=== PATIENT | male | born 1945 | race Caucasian/White ===

== ENCOUNTER 2017-02-02 23:52 | Inpatient (IN) | payer MEDICARE, OTHER ==
[~2017-02-02 23:52] MED LIST: ACIPHEX20 MG PO; ADVAIR IH; FISH OIL CONC1000 MG PO; MVI; OCUVITE PO; XOPENEX IH
[2017-02-03] VITALS (414 sets, daily range): BP systolic 127–185; BP diastolic 59–100; PULSE 78–101; TEMP 97.3–98.4; O2SAT 86–100
[2017-02-03] MEDS ORDERED: ZYLOPRIM 100MG100 MG PO (00:06)
[2017-02-03 00:13] LABS: BASO # 0.1 (0.0-0.2); BASO % 0.6 % (0.0-2.0); EOS # 0.1 (0.0-0.7); GRAN % 73.9 % (42.2-75.2); HEMATOCRIT 49.8 % (42.0-52.0); LYMPH # 1.9 (1.2-3.4); LYMPH % 17.5 % (20.0-51.0); MEAN CELL VOLUME 105 fl (80.0-100.0); MEAN CORPUSCULAR HEMOGLOBIN 36 pg (27.0-31.0); MEAN CORPUSCULAR HGB CONC 34 g/dl (33.0-37.0); MEAN PLATELET VOLUME 9.8 fl (7.4-10.4); MONO # 0.7 (0.1-0.6); MONO % 6.5 % (1.7-9.3); PLATELET COUNT 190 K/mm3 (130-400); RED BLOOD COUNT 4.75 M/mm3 (4.20-5.60); WHITE BLOOD COUNT 10.8 K/mm3 (4.8-10.8)
[2017-02-03 00:25] LABS: ADJUSTED CALCIUM 9.1 mg/dL (8.4-10.2); ALBUMIN 4.7 gm/dL (3.5-5.0); BILIRUBIN,TOTAL 0.7 mg/dL (0.0-1.0); CALCIUM 9.7 mg/dL (8.4-10.2); CREATININE, serum 0.97 mg/dL (0.66-1.25); POTASSIUM 4.3 mmol/L (3.4-5.0); TOTAL PROTEIN 8.4 gm/dL (6.4-8.2)
[2017-02-03 00:36] LABS: TROPONIN-I 0.031 ng/mL (0.000-0.034)
[2017-02-03 00:41] LABS: ARTERIAL BLD GAS O2 SATURATION 96.2 % (92-100); ARTERIAL BLD GAS TCO2 CT 32.5; ARTERIAL BLOOD GAS BASE EXCESS 2.5 (-2-2); ARTERIAL BLOOD GAS HCO3 30.7 meq/L (22-26); ARTERIAL BLOOD GAS PHT 7.32 C (7.35-7.45); ARTERIAL BLOOD GAS PO2 87.2 mmHg (80-100); ARTERIAL BLOOD GAS PO2T 87.2 (80-100); ARTERIAL BLOOD GAS pH 7.32 (7.35-7.45); OXYHEMOGLOBIN 95.2 %
[2017-02-03 00:42] LABS: ALLEN TEST YES; ALLENS TEST RESULT PASS; ATS? YES
[2017-02-03] MEDS ORDERED: PROAIR HFA0.09 MG/AC IH (00:46)
[2017-02-03] MEDS ORDERED: ATROVENT I0.2 MG/1 M IH (00:48)
[2017-02-03] MEDS ORDERED: ALBUTEROL0.83 MG/ML IH (00:49)
[2017-02-03] MEDS ORDERED: CYMBALTA 60MG60 MG PO (00:50)
[2017-02-03] MEDS ORDERED: ZYLOPRIM 300MG300 MG PO (00:50)
[2017-02-03] MEDS ORDERED: FELDENE20 MG PO (00:51)
[2017-02-03] MEDS ORDERED: LASIX 40MG TABL40 MG PO (00:52)
[2017-02-03] MEDS ORDERED: MULTI VITAMINS1 TAB PO (00:54)
[2017-02-03 01:27] LABS: PROTHROMBIN TIME 11.6 SECONDS (9.7-12.8)
[2017-02-03 01:30] LABS: D-DIMER < 200.00 ng/mLDDu (200-230); PARTIAL THROMBOPLASTIN TIME 34.2 SECONDS (26.0-37.0)
[2017-02-03 05:40] LABS: INFLUENZA A NEGATIVE; INFLUENZA B NEGATIVE
[2017-02-03 05:49] LABS: ARTERIAL BLD GAS TCO2 CT 33.6; ARTERIAL BLOOD GAS HCO3 31.8 meq/L (22-26); ARTERIAL BLOOD GAS PHT 7.34 C (7.35-7.45); ARTERIAL BLOOD GAS pH 7.34 (7.35-7.45)
[2017-02-03 05:54] LABS: ALLEN TEST YES; ALLENS TEST RESULT PASS; ATS? YES
[2017-02-03 07:28] LABS: HEMOGLOBIN 16.4 g/dl (13.5-18.0); MEAN CELL VOLUME 109 fl (80.0-100.0); MEAN CORPUSCULAR HEMOGLOBIN 42 pg (27.0-31.0); MEAN CORPUSCULAR HGB CONC 39 g/dl (33.0-37.0); MEAN PLATELET VOLUME 10.1 fl (7.4-10.4); PLATELET COUNT 178 K/mm3 (130-400); RED BLOOD COUNT 3.87 M/mm3 (4.20-5.60); WHITE BLOOD COUNT 7.9 K/mm3 (4.8-10.8)
[2017-02-03 07:32] LABS: ADD PATHOLOGY DIFF REVIEW NO
[2017-02-03 07:39] LABS: ADJUSTED CALCIUM 9.2 mg/dL (8.4-10.2); ALBUMIN 4.5 gm/dL (3.5-5.0); BILIRUBIN,TOTAL 0.6 mg/dL (0.0-1.0); CALCIUM 9.6 mg/dL (8.4-10.2); CREATININE, serum 0.85 mg/dL (0.66-1.25); POTASSIUM 4.6 mmol/L (3.4-5.0); TOTAL PROTEIN 7.9 gm/dL (6.4-8.2)
[2017-02-03 08:10] LABS: BAND 6 % (0-10); LYMPHOCYTE 9 % (20.0-51.0); NEUTROPHILS 84 % (42.0-75.2); TOTAL CELLS COUNTED 100
[2017-02-03 08:12] LABS: PLATELET ESTIMATE NORMAL (NORMAL)
[2017-02-04 03:39] VITALS: BP 138/73; PULSE 83; TEMP 98.2
[2017-02-04 05:27] LABS: ARTERIAL BLD GAS O2 SATURATION 94.1 % (92-100); ARTERIAL BLD GAS TCO2 CT 28.2; ARTERIAL BLOOD GAS HCO3 26.8 meq/L (22-26); ARTERIAL BLOOD GAS PO2 70.4 mmHg (80-100); ARTERIAL BLOOD GAS pH 7.38 (7.35-7.45); OXYHEMOGLOBIN 93.3 %
[2017-02-04 05:28] LABS: ALLEN TEST YES; ALLENS TEST RESULT PASS; ATS? YES
[2017-02-04 08:23] VITALS: BP 143/60; PULSE 105; TEMP 98.6
[2017-02-04] MEDS ORDERED: MUCINEX1200 MG PO (08:34)
[2017-02-04] MEDS ORDERED: FLONASE NASAL S16 GM NS (08:35)
[2017-02-04] MEDS ORDERED: LEVAQUIN 750MG750 M1 PO (08:38)
[2017-02-04] MEDS ORDERED: PREDNISONE20 MG PO (08:38)
== END 2017-02-04 11:04 | disposition home or self-care (01) | DRG 189 ==
LOC: COL.ER 23:52 → ICU 02-03 01:54 → MEDICAL 02-03 01:54
PROVIDERS: Emergency Medicine; Family Medicine; Nurse Practitioner
DX: J96.01 Acute respiratory failure with hypoxia (principal); J44.1 Chronic obstructive pulmonary disease with (acute) exacerbation; I10 Essential (primary) hypertension; G62.9 Polyneuropathy, unspecified; M10.9 Gout, unspecified; Z87.891 Personal history of nicotine dependence
CPT/HCPCS: 99223-AI; 99239; J1650; J1956; J2920; J2930

== ENCOUNTER 2017-11-05 12:58 | Day surgery (SDC) | payer MEDICARE, OTHER ==
[~2017-11-05] VITALS: Ht 177.8 cm; Wt 122.7 kg
[~2017-11-05 12:58] MED LIST changes: -ADVAIR IH; +ALBUTEROL0.83 MG/ML IH; +ATROVENT I0.2 MG/1 M IH; +CYMBALTA 60MG60 MG PO; +FELDENE20 MG PO; +FLONASE NASAL S16 GM NS; +LASIX 40MG TABL40 MG PO; +LEVAQUIN 750MG750 M1 PO; +MUCINEX1200 MG PO; +MULTI VITAMINS1 TAB PO; +PREDNISONE20 MG PO; +PROAIR HFA0.09 MG/AC IH; +RT ADVAIR 128 DISKUS IH; +ZYLOPRIM 100MG100 MG PO; +ZYLOPRIM 300MG300 MG PO
[2017-11-05] MEDS ORDERED: PROBIOTIC FORMU1 CAP PO (13:26)
[2017-11-05] MEDS ORDERED: PRINIVIL10 MG PO (13:26)
[2017-11-05] MEDS ORDERED: COREG 3.123.125 MG/T PO (13:26)
[2017-11-05] MEDS ORDERED: ELIQUIS 5MG PO (13:26)
[2017-11-05] MEDS ORDERED: CLARITIN 1010 MG/TAB PO (13:28)
[2017-11-05 13:42] VITALS: BP 111/63; PULSE 75; TEMP 97.7
[2017-11-05 15:05] VITALS: BP 125/68; PULSE 85; TEMP 98.4
[2017-11-05 15:20] VITALS: BP 123/69; PULSE 65
[2017-11-05 15:35] VITALS: BP 118/72; PULSE 75
== END 2017-11-05 15:53 | disposition home or self-care (01) ==
LOC: SDCO 12:58
DX: D12.8 Benign neoplasm of rectum (principal); K57.30 Diverticulosis of large intestine without perforation or abscess without bleeding; K64.0 First degree hemorrhoids; K21.9 Gastro-esophageal reflux disease without esophagitis; J44.9 Chronic obstructive pulmonary disease, unspecified; I10 Essential (primary) hypertension; I48.91 Unspecified atrial fibrillation; G47.33 Obstructive sleep apnea (adult) (pediatric); E66.01 Morbid (severe) obesity due to excess calories; M19.90 Unspecified osteoarthritis, unspecified site; G62.9 Polyneuropathy, unspecified; Z79.01 Long term (current) use of anticoagulants; Z88.2 Allergy status to sulfonamides; Z85.828 Personal history of other malignant neoplasm of skin; Z86.010 Personal history of colon polyps; Z87.891 Personal history of nicotine dependence
CPT/HCPCS: J2704; J2765; J3010; J7030